=== PATIENT | female | born 1940 | race Caucasian/White ===

== ENCOUNTER → 2023-04-01 13:30 | Outpatient (REF) | payer OTHER, SELFPAY | LOC: HWCARD 13:30 | PROVIDERS: ATTENDING PHYSICIAN Physical Medicine & Rehabilitation; FAMILY PHYSICIAN Internal Medicine | DX: Z01.818 Encounter for other preprocedural examination (principal) | CPT/HCPCS: 93005 ==

== ENCOUNTER 2024-09-22 16:23 | Emergency (ER) | payer OTHER, SELFPAY ==
[2024-09-22 16:28] VITALS: BP 134/59
[2024-09-22 21:00] VITALS: BMI 27.8
[2024-09-22 21:09] VITALS: BP 132/50
[2024-09-22 21:23] LABS: Hematocrit 36.7 % (37.0-47.0); Hemoglobin 12.1 g/dL (12.0-16.0); Mean Corp Hgb Conc. 33.0 g/dL (33.0-37.0); Mean Corpuscular Volume 97.3 fL (81.0-99.0); Nucleated Red Blood Cells % 0 %; Platelet Count 314 10^3/uL (130-400); Red Cell Dist. Width 14.4 % (11.5-14.5)
[2024-09-22 21:38] LABS: ALT (SGPT) 19 U/L (0-35); AST (SGOT) 34 U/L (14-36); Albumin 4.2 g/dl (3.5-5.0); Alkaline Phosphatase 152 U/L (38-126); Blood Urea Nitrogen 23 mg/dl (7-17); Calcium 9.7 mg/dl (8.4-10.2); Carbon Dioxide 25 mmol/L (22-30); Chloride 104 mmol/L (98-107); Estimated Creatinine Clearance 35 ml/min; Glucose 112 mg/dl (70-99); Potassium 4.5 mmol/L (3.5-5.1); Sodium 137 mmol/L (135-145); Total Protein 7.3 g/dl (6.3-8.2); eGFR 49.86
[2024-09-22] MEDS: DECADRON 10 MG IV (21:58)
[2024-09-22] MEDS: DILAUDID 0.5 MG IV (21:59)
[2024-09-22 22:00] VITALS: BP 119/52
--- NOTE | 2024-09-22 22:02 | ED.MUSCINJ ---
HPI-Injury
General
Chief Complaint: Extremity Pain (non-traumatic)
Source: patient
Exam Limitations: none
Time Seen by Provider: 09/22/24 21:40
History of Present Illness-Injury
Initial Injury comments:
84-year-old female presents complaining of recurrent pain and swelling to the right foot atraumatic in nature. Recent suspicion of gout after steroids she was much better however the symptoms returned. X-ray was performed as an outpatient which
was negative. She has an appointment for an MRI in several days. No fevers or chills. She is on Eliquis and has not missed any doses. It does remind her of her prior gout.
Past History
Past History
ED Past Medical History: GERD and HTN
ED Past Surgical History: Gynecological (Hysterectomy) and Orthopedic (Lumbar laminectomy)
Social History
Tobacco: Former smoker
Alcohol: None
Drug: None
Living: with family
Phy Exam
Physical Exam
Physical Exam:
General: Well-appearing female no acute respiratory distress
HEENT: Normocephalic atraumatic
Musculoskeletal exam: The dorsum of the right foot is swollen and tender even to light touch. There is a subtle erythematous hue without underlying fluctuance or induration.
Vascular: 2+ DP pulse right foot. The right foot is warm
Neurologic: Good sensation right foot
Injury Course
Orders/Labs/Results
Orders:
Orders
09/22/24 21:13
Complete Blood Count/With Diff Urgent
Comprehensive Metabolic Panel Urgent
09/22/24 21:56
Dexamethasone Sod Phosphate [Decadron] 10 mg IV NOW STA
HYDROmorphone [Dilaudid] 0.5 mg IV NOW STA
Abnormal Lab Results
09/22/24
21:13
RBC 3.77 L 10^6/uL
(4.20-5.40)
Hct 36.7 L %
(37.0-47.0)
MCH 32.1 H pg
(27.0-31.0)
Absolute Monos (auto) 0.7 H 10^3/uL
(0.1-0.6)
Monocytes % 11.9 H %
(1.7-9.3)
BUN 23 H mg/dl
(7-17)
Creatinine 1.1 H mg/dL
(0.6-1.0)
Glucose 112 H mg/dl
(70-99)
Alkaline Phosphatase 152 H U/L
(38-126)
09/22/24 21:13
09/22/24 21:13
MDM/Problems Addressed
Differential Diagnosis Includes:
Right foot pain. Likely acute gout flare. No fever normal white count do not suspect cellulitis. She has good pulse. I do not believe the pain is from an ischemic cause. It does not appear to be infectious. A suspect is inflammatory in nature.
Will provide pain medicine and anti-inflammatories. She wishes to go home.
*Pulse Oximetry
SaO2: 98
Oxygen Mode of Delivery: Room air
Patient hypoxic: no
*Critical Care Note
Total Time (30-74mins, 75-104mins- exclusive of procedures): Not Applicable
ED Attending Note
-
Portions of this chart may have been created with voice recognition software.� Occasional wrong word or��sound alike� substitutions may have occurred due to the inherent limitations of voice recognition software.
Discharge Plan
Departure
Patient Disposition: Home (Routine Discharge)
Date of Disposition: 09/22/24
Time of Disposition: 22:05
Patient with high blood pressure during this ER visit?: No
Discharge Problem:
Acute foot pain
Instructions: Muscle and Bone Pain (DC)
Prescriptions:
New
hydrocodone-acetaminophen 5-325 mg tablet
1 tab PO Q8H PRN (Reason: Pain) Qty: 10 0RF
prednisone 20 mg tablet
40 mg PO DAILY 5 Days Qty: 10 0RF
No Action
omeprazole 20 MG capsule,delayed release(DR/EC)
20 mg PO DAILY
gabapentin 100 MG capsule
100 mg PO BID
ibuprofen 200 MG tablet
400 mg PO Q4HPRN PRN (Reason: pain)
multivitamin 1 EACH tablet
1 ea PO DAILY
loperamide 2 MG capsule
4 mg PO Q6HPRN PRN (Reason: diarrhea)
cetirizine 10 MG tablet
10 mg PO DAILY
rosuvastatin 5 MG tablet
5 mg PO DAILY
Collagen Power
1 scoop PO DAILY
Exipure
1 tab PO DAILY
Ginkgo Biloba
1 tab PO DAILY
Peppermint Oil
1 tab PO DAILY
mupirocin 1 APPLIC ointment
1 applic topical BID Qty: 1 0RF
Patient Comments:
Patient started this treatment on 07/21/21. Patient administered this medication this morning @05:00 on 07/24/21.
oxycodone 5 MG tablet
5 mg PO Q6HPRN PRN (Reason: moderate-severe pain) Qty: 30 0RF
Rx Instructions:
1 tab moderate pain or 2 if pain severe
Dx total joint replacement
ongoing therapy
Aspirin 325 MG Tablet
325 mg PO DAILY 30 Days Qty: 30 0RF
sennosides [Senna Laxative] 8.6 MG tablet
8.6 mg PO BID 15 Days Qty: 30 0RF
docusate sodium [Colace] 100 MG capsule
100 mg PO BID 15 Days Qty: 30 0RF
hydrocodone-acetaminophen 5-325 mg tablet
1 tab PO Q4H PRN (Reason: pain) Qty: 20 0RF
ondansetron 8 mg tablet,disintegrating
8 mg PO TID PRN (Reason: nausea and vomiting) Qty: 20 0RF
Referrals:
Jorge L Harley DO [Family Provider, Internal Medicine]
Interventions
Interventions:
*Risk Screen - Suicide Last Done: 09/22/24 16:31
*General Assessment Last Done: 09/22/24 16:31
*Neglect/Abuse Screening Last Done: 09/22/24 21:00
*ED COVID-19 Vaccine History Last Done: 09/22/24 16:31
ED-Skin Assessment Last Done: 09/22/24 21:00
ED-Peripheral Vascular Assessment Last Done: 09/22/24 21:00
ED-Musculoskeletal Assessment Last Done: 09/22/24 21:00
Discharge Date and Time
Print Language: PASHTO
== END 2024-09-22 23:04 | disposition home or self-care (01) ==
LOC: EMR 16:23
PROVIDERS: EMERGENCY PHYSICIAN Student in an Organized Health Care Education/Training Program; FAMILY PHYSICIAN Internal Medicine
DX: M79.671 Pain in right foot (principal); I10 Essential (primary) hypertension; M10.9 Gout, unspecified; K21.9 Gastro-esophageal reflux disease without esophagitis; Z79.01 Long term (current) use of anticoagulants; Z87.891 Personal history of nicotine dependence
CPT/HCPCS: 99284; 96374; 96375; 80053; 85025

== ENCOUNTER → 2025-02-03 13:48 | Outpatient (REF) | payer OTHER, SELFPAY | LOC: RAD 13:48 | PROVIDERS: ATTENDING PHYSICIAN Student in an Organized Health Care Education/Training Program; FAMILY PHYSICIAN Internal Medicine | DX: I87.2 Venous insufficiency (chronic) (peripheral) (principal) | CPT/HCPCS: 93970 ==